=== PATIENT | male | born 1970 | race Asian ===

== ENCOUNTER → 2016-06-08 | Outpatient (CLI) | payer OTHER ==
[~2016-06-08] MED LIST: GADOBUTROL 10 ML VIAL IVP ONE
== END ==
LOC: FIMAGING 15:04
PROVIDERS: ATTEND Internal Medicine Hematology & Oncology
DX: Z08 Encounter for follow-up examination after completed treatment for malignant neoplasm (principal); C71.2 Malignant neoplasm of temporal lobe
CPT/HCPCS: A9585

== ENCOUNTER → 2016-09-03 | Outpatient (CLI) | payer OTHER | LOC: FIMAGING 10:01 | PROVIDERS: ATTEND Internal Medicine Hematology & Oncology | DX: C71.2 Malignant neoplasm of temporal lobe (principal) | CPT/HCPCS: A9585 ==

== ENCOUNTER → 2016-11-17 | Outpatient (CLI) | payer OTHER | LOC: FIMAGING 08:37 | PROVIDERS: ATTEND Internal Medicine Hematology & Oncology | DX: Z08 Encounter for follow-up examination after completed treatment for malignant neoplasm (principal); Z85.841 Personal history of malignant neoplasm of brain; G93.89 Other specified disorders of brain | CPT/HCPCS: A9585 ==

== ENCOUNTER → 2017-02-22 | Outpatient (CLI) | payer OTHER | LOC: FIMAGING 18:42 | PROVIDERS: ATTEND Internal Medicine Hematology & Oncology | DX: R93.0 Abnormal findings on diagnostic imaging of skull and head, not elsewhere classified (principal); C71.2 Malignant neoplasm of temporal lobe | CPT/HCPCS: A9585 ==

== ENCOUNTER 2017-05-02 13:12 | Emergency (ER) | payer OTHER ==
--- NOTE | 2017-05-02 13:25 | CPEKG ---
Heart Rate: 102 RR Interval: 588 P-R Interval: 128 QRSD Interval: 96 QT Interval: 360 QTC Interval: 469 P Tenaf[place]: 28 QRS [place]af[place]: 28 T Wave Tenaf[place]: -6 EKG Severity - BORDERLINE ECG - EKG Impression: SINUS TACHYCARDIA EKG Impression: BORDERLINE T ABNORMALITIES, INFERIOR LEADS Electronically Signed By: Luis Poe 02-May-2017 18:14:35
[2017-05-02 13:36] LABS: PLATELET COUNT 277 10^3/uL (150-400)
--- NOTE | 2017-05-02 13:36 | EDPHY ---
General Narrative: CHIEF COMPLAINT: Seizure HISTORY OF PRESENT ILLNESS: Patient arrived EMS with reports of seizure. EMS reports that witness at an internet cafe describe tonic clonic type activity. Lasted for 1-2 minute. EMS arrived and he was reportedly postal. He was reportedly admitted 5 mg of Versed EN route. His postictal at in no acute distress. He does not remember what happened. He says that he sore and somewhat confused. he has no headache. No neck pain. No chest pain. No injury to the tongue. No urination or defecation. History of glioblastoma with resection February 2016. Radiating therapy last summer and fall. Most recent brain MRI in February showed possible recurrence versus radiation necrosis the schedule for repeat MRI next month. His oncologist Dr. Elvira Cage. His neurosurgeon is Dr. Ingram. REVIEW OF SYSTEMS: Ten systems reviewed and are negative unless otherwise noted in the HPI PCP: Dr. Levon Felix SPECIALISTS: Dr. Levon Ingram PAST MEDICAL HISTORY: Glioblastoma PAST SURGICAL HISTORY: Craniotomy with resection of glioblastoma February 2016 SOCIAL HISTORY: Nonsmoker. No alcohol. Lives in [place] with his spouse FAMILY HISTORY: Noncontributory EXAMINATION General Appearance: Alert, no distress Head: Optune neurostimulator in place. normocephalic, atraumatic. No Chaudhry sign. No raccoon eyes. Eyes: Pupils equal and round, no conjunctival pallor or injection. EOMs intact. No nystagmus or dysconjugate gaze ENT, Mouth: Mucous membranes moist. Airway is patent. Gag reflex present Neck: Normal inspection, supple, non-tender Respiratory: Lungs are clear to auscultation Cardiovascular: Regular rate and rhythm. No murmur Gastrointestinal: Abdomen is soft and nontender Back: non-tender, no bony abnormalities Neurological: GCS 15. postictal but alert. Stress symmetric in all 4 limbs. No pronator drift. Normal finger to nose. Skin: Warm and dry, no rash petechiae or purpura Extremities: Nontender, no pedal edema Psychiatric: Mood and affect normal DIFFERENTIAL DIAGNOSES: Including but not limited to seizure, cerebral edema, glioblastoma recurrence MDM: 1:40 p.m. Likely seizure that was witnessed by bystanders not at this hospital. Patient does have a history of a glioblastoma on the right side that status post resection with possible recurrence versus radiation necrosis on most recent MRI. He is postictal but in no acute distress at this time. No seizure-like activity witnessed thus far. I did speak with his and have discover that his neurosurgeon is Dr. Ingram I will patent to discuss. I discussed with Dr. Poe. We will repeat the MRI with contrast. 1:53 p.m. Case discussed with the neurosurgery PA Carissa. Discussed patient's case. She confirmed that his craniotomy and resection was February 2016. He was last seen in the office in April of 2016, 1 year ago. She recommends IV Keppra at this time. Does not recommend steroid the MRI returns. She also recommends that I contact his oncologist Dr. Felix. 2:00 p.m. Case discussed with Dr. Dunham, on-call for Dr. Felix. We discussed the patient's history and current status. He agrees that Decadron is reasonable treatment at this time. He recommends that we contact the hospitalist oncologist should the patient warrant inpatient stay. 2:30 p.m. Patient has been evaluated here in the emergency department by Dr. Gurrola 3:00 p.m. Patient is now in MRI department. 4:[address] Gurrola he has reviewed the MRI. He does not appreciate any acute findings. He recommends Keppra 500 mg twice daily. He recommends follow up with established neurosurgeon and primary care as well as on-call. This is pending official radiology to petition. 4:40 p.m. MRI results were reported to Dr. Poe. No significant findings. I have updated the patient of this. At this point he is stable for discharge home with outpatient follow-up as above. Patient's spouse are comfortable this plan. We discussed driving precautions, at risk behavior and ED precautions. They are comfortable this plan and discharged home stable condition SUPERVISION: Patient was independently examined, but I discussed the case with my secondary supervising physician Dr. Poe ([facility]) Medical Decision Making: PHYSICIAN DOCUMENTATION: The patient was evaluated and managed by the Physician Storage Brine Worker. My co- signature indicates that I have reviewed this chart and I agree with the findings and plan of care as documented. I am the secondary supervising physician. (Luis Poe) - Diagnostics Imaging Results: Imaging Impressions Brain MRI 05/02/17 13:47 Impression: 1. Right temporal lobe postsurgical changes with diminishing minimal enhancement in the ventral lateral temporal lobe region adjacent to the temporal horn suggesting improvement of minimal radiation necrosis or enhancing gliosis. Minimal residual neoplasm cannot be entirely excluded, although interval improvement suggests more likely benign etiology. 2. No new enhancing lesions. 3. Atrophy. 4. No acute infarct, acute hemorrhage, epidural/subdural hematoma, hydrocephalus , or herniation. Findings and recommendations discussed with Emergency Department physician, Luis Poe at 1620 hour, 05/02/2017. Final report concurs with initial preliminary interpretation. - Objective Vital Signs: Initial Vital Signs Temperature (C) 36.8 C 05/02/17 13:13 Heart Rate 102 H 05/02/17 13:13 Respiratory Rate 18 05/02/17 13:13 Blood Pressure 124/81 H 05/02/17 13:13 O2 Sat (%) 94 05/02/17 13:13 O2 Delivery Mode Room Air Allergies/Adverse Reactions: No Known Allergies Allergy (Unverified 05/02/17 14:13) Home Medications: Medication Instructions Recorded levETIRAcetam [Keppra 500 mg (*)] 500 mg PO BID #60 tab 05/02/17 Laboratory Results: Laboratory Results 05/02/17 13:10 05/02/17 13:10 05/02/17 05/02/17 13:10 13:10 WBC 11.85 10^3/uL H 10^3/uL (3.80-9.50) RBC 5.21 10^6/uL 10^6/uL (4.40-6.38) Hgb 15.6 g/dL g/dL (13.7-17.5) Hct 48.7 % % (40.0-51.0) MCV 93.5 fL fL (81.5-99.8) MCH 29.9 pg pg (27.9-34.1) MCHC 32.0 g/dL L g/dL (32.4-36.7) RDW 11.9 % % (11.5-15.2) Plt Count 277 10^3/uL 10^3/uL (150-400) MPV 10.9 fL fL (8.7-11.7) Neut % (Auto) 60.6 % % (39.3-74.2) Lymph % (Auto) 27.7 % % (15.0-45.0) [place] % (Auto) 6.6 % % (4.5-13.0) Eos % (Auto) 2.8 % % (0.6-7.6) Baso % (Auto) 0.9 % % (0.3-1.7) Nucleat RBC Rel Count 0.0 % % (0.0-0.2) Absolute Neuts (auto) 7.19 10^3/uL H 10^3/uL (1.70-6.50) Absolute Lymphs (auto) 3.28 10^3/uL H 10^3/uL (1.00-3.00) Absolute Monos (auto) 0.78 10^3/uL 10^3/uL (0.30-0.80) Absolute Eos (auto) 0.33 10^3/uL 10^3/uL (0.03-0.40) Absolute Basos (auto) 0.11 10^3/uL H 10^3/uL (0.02-0.10) Absolute Nucleated RBC 0.00 10^3/uL 10^3/uL (0-0.01) Immature Gran % 1.4 % H % (0.0-1.1) Immature Gran # 0.16 10^3/uL H 10^3/uL (0.00-0.10) Sodium 146 mEq/L H mEq/L (135-145) Potassium 4.0 mEq/L mEq/L (3.5-5.2) Chloride 104 mEq/L mEq/L (97-110) Carbon Dioxide 9 mEq/l L* mEq/l (22-31) Anion Gap 33 mEq/L H mEq/L (8-16) BUN 14 mg/dL mg/dL (7-23) Creatinine 0.9 mg/dL mg/dL (0.7-1.3) Estimated GFR > 60 Glucose 134 mg/dL H mg/dL (70-100) Calcium 9.6 mg/dL mg/dL (8.5-10.4) Creatine Kinase 132 IU/L IU/L (0-224) Medications Given: Discontinued Medications Dexamethasone (Decadron Injection) 10 mg IVP EDNOW ONE Stop: 05/02/17 14:12 Last Admin: 05/02/17 14:15 Dose: 10 mg Levetiracetam 1,000 mg/ Sodium (Chloride) 110 mls @ 440 mls/hr IV EDNOW ONE Stop: 05/02/17 14:07 Last Admin: 05/02/17 14:12 Dose: 110 mls Departure - Departure Disposition: Home, Routine, Self-Care Clinical Impression: Witnessed seizure-like activity, Primary glioblastoma of brain Instructions: Nonepileptic Seizures (ED) Additional Instructions: 1. Medication as prescribed 2. Contact Dr. Felix for outpatient follow-up 3. Contact Dr. Ingram for outpatient follow-up 4. Driving restrictions as discussed 5. Avoid activities that place you or those around you in danger as discussed 6. ED precautions as discussed Referrals: Fadi Ingram MD [Medical Doctor] - As per Instructions Kimberly Felix MD [Medical Doctor] - As per Instructions Prescriptions: levETIRAcetam [Keppra 500 mg (*)] 500 mg PO BID #60 tab
[2017-05-02 13:43] LABS: CREATINE KINASE 132 IU/L (0-224)
[2017-05-02] MEDS ORDERED: levETIRAcetam 1,000 MG in NS 100 ML IV ONE (13:53)
[2017-05-02] MEDS ORDERED: DEXAMETHASONE 10 MG/ML VIAL IVP ONE (14:11)
[2017-05-02] MEDS ORDERED: GADOBUTROL 10 ML VIAL IVP ONE (14:20)
--- NOTE | 2017-05-02 15:15 | GCON ---
[f rep st] CONSULTATION NEUROSURGICAL EMERGENCY ROOM CONSULTATION DATE OF CONSULTATION: 05/02/2017 CHIEF COMPLAINT: The patient is a 46-year-old man with new onset seizures. HISTORY OF PRESENT ILLNESS: The patient has a known glioblastoma and underwent surgery for this in 2015 under the care of Dr. Ingram. He subsequently underwent radiation, chemotherapy and is currently on Optune and is very functional and was working in his office today when he had what so unds like a tonoclonic seizure. He was taken to [facility] emergency room by brady orozco and is here now for neurosurgical evaluation. PAST MEDICAL AND SURGICAL HISTORY: 1. Craniotomy for GBM as noted above. 2. Remote history of nasal surgery. MEDICATIONS ON ADMISSION: Optune chemotherapy for GBM. ALLERGIES: None known. FAMILY HISTORY: Noncontributory. SOCIAL HISTORY: The patient is and lives in [place] and is a 4-year-old child. PHYSICAL EXAMINATION: CARDIOVASCULAR: Regular rate and rhythm. LUNGS: Clear on auscultation. ALANA ROLOGIC: The patient is awake, alert, and oriented x4. The patient's speech is fluent and appropria te. His extraocular movements are intact. He has full strength throughout. His reflexes are within normal limits. DIAGNOSTIC STUDIES: MRI of the brain dated February of 2017 was reviewed by me personally and shows postsurgical changes in the right temporoparietal area with some enhancement, is not clearly tumor re currence and could be radiation necrosis. IMPRESSION AND RECOMMENDATIONS: This is a 46-year-old man who is about 14 months out from a cranioto my for glioblastoma multiforme resection followed by chemotherapy. He is very functional and had a n ew onset seizure. He was given Keppra in the emergency room and will be given 10 of Decadron. He is pending a repeat MRI of his brain and, if this is unremarkable for any changes, we will probably sen d him home on anticonvulsants and rapid steroid taper or no steroids at all. If the MRI shows someth ing significant, then we may need to admit him or do some other intervention. /[id number]/MODL
[2017-05-02 16:43] VITALS: BP 127/97; PULSE 79; RESP 18; TEMP 98.6; O2SAT 97
== END 2017-05-02 17:00 | disposition home or self-care (01) ==
LOC: EDUNIT#
DX: R56.9 Unspecified convulsions (principal); C71.9 Malignant neoplasm of brain, unspecified
CPT/HCPCS: 96365; A9585; J1100; J1953

== ENCOUNTER → 2017-08-02 | Outpatient (CLI) | payer OTHER | LOC: FIMAGING 13:12 | DX: C71.2 Malignant neoplasm of temporal lobe (principal) | CPT/HCPCS: A9585 ==

== ENCOUNTER → 2017-10-08 | Outpatient (CLI) | payer OTHER | LOC: FIMAGING 12:26 | PROVIDERS: ATTEND Internal Medicine Hematology & Oncology | DX: C71.2 Malignant neoplasm of temporal lobe (principal); D49.6 Neoplasm of unspecified behavior of brain | CPT/HCPCS: A9585 ==

== ENCOUNTER → 2018-01-22 | Outpatient (CLI) | payer OTHER | LOC: FIMAGING 06:50 | DX: C71.2 Malignant neoplasm of temporal lobe (principal) | CPT/HCPCS: A9585 ==

== ENCOUNTER → 2018-04-23 | Outpatient (CLI) | payer OTHER | LOC: FIMAGING 07:43 | PROVIDERS: ATTEND Internal Medicine Hematology & Oncology | DX: C71.2 Malignant neoplasm of temporal lobe (principal) | CPT/HCPCS: A9585 ==

== ENCOUNTER 2018-04-30 05:55 | Inpatient (IN) | payer OTHER ==
[2018-04-30] MEDS ORDERED: LR 1,000 ML IV ONE (06:08)
[2018-04-30] MEDS ORDERED: LIDOCAINE 1% 2 ML INJ ID PRN (06:08)
[2018-04-30] MEDS ORDERED: ACETAMINOPHEN 500 MG TAB PO ONE (06:24)
[2018-04-30] MEDS ORDERED: ceFAZolin 2 GM/DEXTROSE 100 ML IV ONE (06:24)
[2018-04-30 06:59] LABS: PLATELET COUNT 225 10^3/uL (150-400)
[2018-04-30] MEDS ORDERED: GADOBUTROL 10 ML VIAL IVP ONE (06:59)
[2018-04-30] MEDS ORDERED: CHLORHEXIDINE GLUC HIBICLENS 118 ML BTL TP ONE (07:46)
[2018-04-30] MEDS ORDERED: MANNITOL 20% 100 GM/500 ML BAG IV ONE (07:46)
[2018-04-30] MEDS ORDERED: SURGIFLO MATRIX KIT WITH THROMBIN 8 ML TP ONE (07:46)
[2018-04-30] MEDS ORDERED: BACITRACIN ZINC 0.5 OZ OINTTUBE TP ONE (07:46)
[2018-04-30] MEDS ORDERED: THROMBIN (BOVINE) 5,000 UNIT VIAL TP ONE (07:46)
[2018-04-30] MEDS ORDERED: AVITENE POWDER 1 GM JAR TP ONE (07:47)
[2018-04-30] MEDS ORDERED: BUPIVACAINE/EPI 0.25% 30 ML SDV ONE (07:47)
[2018-04-30] MEDS ORDERED: GENTAMICIN SULFATE 80 MG/2 ML VIAL ONE (07:47)
[2018-04-30] MEDS ORDERED: HYDROGEN PEROXIDE 236 ML BOTTLE TP ONE (07:47)
--- NOTE | 2018-04-30 07:53 | PDHPUP ---
History & Physical Update H&P update statement: This history and physical update is based on an assessment of the patient which was completed after admission or registration (within 24 hours), but prior to the surgery/procedure. H&P update: H&P reviewed & patient examined, no change in patient's condition since H&P completed
--- NOTE | 2018-04-30 08:34 | PDANEPAE ---
ANE History of Present Illness 47 year old with glio ANE Past Medical History - Cardiovascular History Hx Hypertension: No Hx Arrhythmias: No Hx Chest Pain: No Hx Coronary Artery / Peripheral Vascular Disease: No Hx CHF / Valvular Disease: No Hx Palpitations: No - Pulmonary History Hx COPD: No Hx Asthma/Reactive Airway Disease: No Hx Recent Upper Respiratory Infection: No Hx Oxygen in Use at Home: No Hx Sleep Apnea: No Sleep Apnea Screening Result - Last Documented: Negative Pulmonary History Comment: reports no illness but occasional productive cough - Neurologic History Hx Cerebrovascular Accident: No Hx Seizures: Yes Hx Dementia: No Neurologic History Comment: glioblastoma. last seizure 04/2017 - Endocrine History Hx Diabetes: No - Renal History Hx Renal Disorders: No - Liver History Hx Hepatic Disorders: No - Neurological & Psychiatric Hx Hx Neurological and Psychiatric Disorders: No Neurological / Psychiatric History Comment: GLIOBLASTOMA - Cancer History Hx Cancer: Yes Cancer History Comment: glioblastoma - Congenital Disorder History Hx Congenital Disorders: No - GI History Hx Gastrointestinal Disorders: No - Other Health History Other Health History: last oral chemotherapy Mar 12, 2018 - Chronic Pain History Chronic Pain: No - Surgical History Prior Surgeries: left crainotomy w/resection 10/2017. left knee reconstruction in [place] 10/2017. crani for tumor resection 2016 ANE Review of Systems Review of systems is: negative Review of Systems: - Exercise capacity METS (RN): 4 METS ANE Patient History - Allergies Allergies/Adverse Reactions: No Known Allergies Allergy (Verified 04/29/18 12:57) - Home Medications Home Medications: Dexamethasone [Decadron 4 MG (*)] 4 mg PO BID 04/29/18 [Last Taken 04/30/18 05: 00] levETIRAcetam [Keppra 500 mg (*)] 500 mg PO BID 04/29/18 [Last Taken 04/30/18 05 :00] - NPO status NPO Since - Liquids (Date): 04/30/18 NPO Since - Liquids (Time): 04:00 NPO Since - Solids (Date): 04/29/18 NPO Since - Solids (Time): 21:00 - Anes Hx Anes Hx: no prior problems - Smoking Hx Smoking Status: Never smoked - Family Anes Hx Family Hx Anesthesia Complications: none ANE Labs/Vital Signs - Labs Result Diagrams: 04/30/18 06:40 04/30/18 06:40 - Vital Signs Blood Pressure: 131/87 Heart Rate: 59 Respiratory Rate: 16 O2 Sat (%): 95 Height: 170.18 cm Weight: 74.843 kg ANE Physical Exam - Airway Neck exam: FROM, spinal fusion Mouth exam: normal dental/mouth exam - Pulmonary Pulmonary: no respiratory distress - Cardiovascular Cardiovascular: regular rate and rhythym ANE Anesthesia Plan Anesthesia Plan: general endotracheal anesthesia Lines/Monitors: arterial line
[2018-04-30] MEDS ORDERED: MIDAZOLAM 2 MG/2 ML VIAL IVP ONE (08:36)
[2018-04-30] MEDS ORDERED: PROPOFOL 200 MG/20 ML VIAL ONE ×2 (08:48→11:50)
[2018-04-30] MEDS ORDERED: fentaNYL 100 MCG/2 ML INJ ONE ×2 (08:48→12:21)
[2018-04-30] MEDS: levETIRAcetam 500 MG TAB PO SCH ×2 (11:57→20:23)
[2018-04-30] MEDS ORDERED: NALOXONE HCL 0.4 MG/ML INJ IVP PRN ×2 (12:16→12:17)
[2018-04-30] MEDS ORDERED: ONDANSETRON 4 MG/2 ML VIAL IVP PRN ×2 (12:17→12:21)
[2018-04-30] MEDS ORDERED: PROMETHAZINE HCL 25 MG/ML INJ IVP PRN ×2 (12:17→12:21)
[2018-04-30] MEDS ORDERED: fentaNYL 100 MCG/2 ML INJ IVP PRN (12:17)
--- NOTE | 2018-04-30 12:20 | POSTANESTH ---
Post Anesthetic Evaluation Cardiovascular Status: Normal, Stable Respiratory Status: Normal, Stable Level of Consciousness/Mental Status: Can Participate in Eval Pain Control: Adequate, Prn Tx Ordered Nausea/Vomiting Control: Adequate, Prn Tx Ordered Complications Possibly Related to Anesthesia: None Noted
[2018-04-30] MEDS ORDERED: HYDROCODONE/APAP 10/325 TAB PO PRN (12:21)
[2018-04-30] MEDS ORDERED: POLYETHYLENE GLYCOL 3350 17 GM PKT PO PRN (12:21)
[2018-04-30] MEDS ORDERED: ACETAMINOPHEN 325 MG TAB PO PRN (12:21)
[2018-04-30] MEDS ORDERED: BISACODYL 10 MG SUPP PR PRN (12:21)
[2018-04-30] MEDS ORDERED: LACTULOSE 20 GM/30 ML UDCUP PO PRN (12:21)
[2018-04-30] MEDS ORDERED: diphenhydrAMINE 25 MG CAP PO PRN (12:21)
[2018-04-30] MEDS ORDERED: ONDANSETRON DISINTEGRATING 4 MG TAB PO PRN (12:21)
[2018-04-30] MEDS ORDERED: niCARdipine/NACL 200 ML IV PRN (12:21)
[2018-04-30] MEDS ORDERED: MAGNESIUM HYDROXIDE 30 ML UDCUP PO PRN (12:21)
[2018-04-30] MEDS ORDERED: NS W/ 20 KCl/L 1,000 ML IV SCH (12:30)
--- NOTE | 2018-04-30 12:37 | POSTOPPROG ---
Post Op Note Date of Operation: 04/30/18 Surgeon: José Wade [employer] Specialist: Kemi Lal PA-C Anesthesia: GET(General Endotracheal) Pre-op Diagnosis: Glioblastoma Post-op Diagnosis: same Procedure: Re-do left parietal craniotomy for resection of recurrent GBM Inf/Abcess present in the surg proc area at time of surgery?: No Depth: Organ Space EBL: 75 Complications: None observed SOAP Progress Note Assessment/Plan: Assessment: Plan: 04/30/18 12:34 S: Patient is doing well, awake in PACU and stable. O: Alert, Awake, following commands Vision grossly intact PERRL, EOMI CN II-XII grossly intact SANCHEZ X4 to commands No droop BLE 5/5= BUE 5/5 SILT Incision c/d/i- dressed A: 47 yo male sp Re-do left parietal craniotomy for resection of recurrent GBM P: -Admit to SDU -Q2 hour neuro checks -Optimize pain management -PT.OT.JUSTICE COURT JUDGE -Postop MRI in am -SBP 90-140 -Advance diet as tolerated -Continue decadron 4mg q6hrs for now, will determine taper after MRI(was on 4mg BID prior to surgery) -DVT: TEDs, SCDs, Lovenox may be started tomorrow if MRI looks good -Seen by Dr. Wade in PACU -Call with any changes in neuro exam Objective: Vital Signs Temp Pulse Resp BP Pulse Ox 36.7 C 59 L 16 131/87 H 95 04/30/18 07:02 04/30/18 08:34 04/30/18 08:34 04/30/18 08:34 04/30/18 08:34 Laboratory Results 04/30/18 06:40 04/30/18 06:40
--- NOTE | 2018-04-30 13:15 | PDMN ---
Medical Necessity Medical necessity: Pt meets inpt criteria per MD order and [facility], Craniotomy , Supratentorial, 3 days, [facility] IP only list. 47 y/o w/glioblastoma underwent re- do L parietal craniotomy for resection of recurrent GBM.
--- NOTE | 2018-04-30 14:13 | ASMTCMCOM ---
CM Note CM Note Notes: Reviewed chart, pt in for a scheduled brain surgery on a parietal tumor.P lives at home with his , PT/OT/INDEPENDENT FREIGHT AGENT therapies pending, VALENTINE w/f. DC Plan: TBD Date Signed: 04/30/2018 02:12 PM Electronically Signed By:Viky Diaz RN
--- NOTE | 2018-04-30 15:29 | GOP ---
DATE OF OPERATION: 04/30/2018 SURGEON: José Wade MD NEUROSURGEON: José Wade MD. LABORATORY CLERK: RAMON Graham. ANESTHESIA: General endotracheal. PREOPERATIVE DIAGNOSIS: Recurrent glioblastoma. POSTOPERATIVE DIAGNOSIS: Recurrent glioblastoma. PROCEDURE PERFORMED: 1. Redo left parietal craniotomy. 2. Microsurgical gross total resection of primary brain tumor. 3. Use of the operating microscope. 4. Stealth stereotactic neuronavigation for volumetric gross total resection of tumor. 5. Titanium mesh cranioplasty. FINDINGS: SPECIMENS: Left recurrent parietal brain tumor. Frozen section showed glioblastoma. ESTIMATED BLOOD LOSS: 75 cc fluids. INDICATIONS: The patient is a 47-year-old man who has had a right temporal glioblastoma and subsequently a left parietal glioblastoma which were resected by Dr. Ingram. His last surgery was in January of last year, and he has had a recurrence already. We discussed the options and elected to bring him to surgery for resection followed by radiation therapy. DESCRIPTION OF PROCEDURE: After informed consent was obtained from the patient , the patient was brought to the operating room and was placed in a supine position on the operating table. A formal time-out was performed, identifying the patient by name, medical record number and date of . Preoperative antibiotics were given. The endotracheal tube was placed, and general endotracheal anesthesia was smoothly induced. The patient's head was placed in Schilling pins and turned slightly toward the left side, and his back was extended upward to a near sitting position. The Stealth was then registered to the scalp and checked for accuracy using known surface landmarks. The previous incision was marked. The head was prepped and draped in the normal sterile fashion. The skin incision was made using a 10 blade, and the subcutaneous tissues were dissected using monopolar electrocautery. Chelsy clips were placed for hemostasis. Self-retaining retractors were placed, and the previous bone flap was identified. The previous titanium plates and screws were removed, and the bone flap was removed. Medially, the previous bone flap did not extend quite to the sagittal sinus. Therefore, I stripped the dura from beneath and some more bone medially was drilled coming all the way to the edge of the sagittal sinus to get more exposure. At this point, the dura was opened in a curvilinear fashion from the space for the sagittal sinus. The operating microscope was then brought on the field and remainder of the procedure was performed under high-power magnification. Using the stealth, we then anteriorly found the borders of the tumor. Bipolar electrocautery and suction were then used to make a small corticectomy and the anterior border of the tumor was followed very closely carefully this from what likely would have been motor cortex anteriorly by 1 gyrus. We continued in this fashion, also laterally the tumor from the brain. Posteriorly, we were also able to separate the tumor from the brain. A small piece superficially was taken for frozen section which returned as again glioblastoma. The scar tissue was carefully from the falx, and we continued this circumferential dissection until the tumor was completely disconnected. The tumor was then removed en bloc. The edges of the cavity were then inspected. There was 1 questionable area anteriorly and medially, and a little bit more tumor was removed using the ultrasonic aspirator. All the borders at this point looked quite clean without any further suspicious tissue. The lateral ventricle was entered laterally during the resection. A small piece of Gelfoam was placed into the ventricular opening, and there was no leakage of CSF. At this point, again, the cavity was carefully inspected. All bleeders were controlled using bipolar electrocautery. The wound was completely dry. This was then irrigated with gentamicin irrigation, and Surgicel was placed over all the borders of the resection cavity. At this point , the cavity was also checked with the navigation to be sure that we had covered all the areas that we expected. At this point, the dura was tacked closed using interrupted 4-0 Nurolons, but given the shrinkage of the dura did not close completely. Therefore, a duraplasty using DuraGen was performed. The craniotomy flap was plated back in place using Synthes titanium plates and screws. Medially where we had drilled the bone there was a gap, and this was covered using titanium mesh. The wound was then copiously irrigated using bacitracin irrigation. All bleeding from the skin was closed controlled using bipolar electrocautery. The galea was closed using interrupted 2-0 Vicryls, and the skin was closed using a running locking 3-0 Prolene. The patient was then awakened in the operating room and was removed from the Schilling pins. He was transferred to the PACU in stable condition with no operative complications. I was scrubbed and present for the entire procedure. All sponge and needle counts were correct at the end of the case. FLUIDS AND URINE OUTPUT: Per the anesthesia record. DRAINS: There were no drains. /[id number]/MODL MTDD
[2018-04-30] MEDS: POLYETHYLENE GLYCOL 3350 17 GM PKT PO SCH ×2 (16:28→20:23)
[2018-04-30] MEDS: DEXAMETHASONE 4 MG TAB PO SCH (17:06)
[2018-04-30] MEDS: hydrALAZINE 20 MG/ML VIAL IVP PRN (17:06)
[2018-04-30] MEDS: FAMOTIDINE 20 MG TAB PO SCH (20:23)
[2018-04-30] MEDS: SENNOSIDES/DOCUSATE SODIUM TAB PO SCH (20:23)
[2018-05-01] MEDS: DEXAMETHASONE 4 MG TAB PO SCH ×5 (00:22→23:45)
[2018-05-01] MEDS: hydrALAZINE 20 MG/ML VIAL IVP PRN (01:45)
[2018-05-01] MEDS: levETIRAcetam 500 MG TAB PO SCH ×2 (07:46→20:46)
[2018-05-01] MEDS: FAMOTIDINE 20 MG TAB PO SCH ×2 (07:46→20:46)
[2018-05-01] MEDS: POLYETHYLENE GLYCOL 3350 17 GM PKT PO SCH ×3 (07:46→20:46)
[2018-05-01] MEDS: SENNOSIDES/DOCUSATE SODIUM TAB PO SCH ×2 (07:46→20:46)
--- NOTE | 2018-05-01 07:51 | NEUSURGPN ---
Assessment/Plan: Assessment: Plan: 04/30/18 12:34 S: Doing well. No noticeable new symptoms since surgery. Mild incisional tenderness. O: Alert, Awake, following commands Vision grossly intact PERRL, EOMI CN II-XII grossly intact SANCHEZ X4 to commands No droop BLE 5/5= BUE 5/5 SILT Incision c/d/i- dressed A: 47 yo male POD#1 sp Re-do left parietal craniotomy for resection of recurrent GBM P: -Neuro: Stable and doing well overall -Q4 neuro checks -Optimize pain management -PT.OT.RN FIRST ASSIST -Postop MRI this morning -SBP 90-140 -Continue decadron 4mg q6hrs for now -DVT: TEDs, SCDs,Sub Q heparin to start today - Seen by Dr. Wade as well -Call with any changes in neuro exam Catheter Insertion Date: 04/30/18 - Physician Discussed Patient with Dr.: Wade Neurosurgery Physical Exam - Vitals, I&O, Labs I and O 04/30/18 05/01/18 05/02/18 05:59 05:59 05:59 Intake Total 4758 Output Total 7575 Balance -2817 Weight 74.843 kg 74.843 kg Intake: Oral (ml) 325 IV Intake (ml) 3992 IV Infused (ml) 441 NS W/ 20 KCl/L 1,000 ml @ 441 100 mls/hr IV CONT AMIRA Rx#:[id number] Output: Urine (ml) 7500 Catheter 7500 Estimated Blood Loss (ml) 75 Vital Signs Temp Pulse Resp BP Pulse Ox 37.1 C 82 14 126/74 H 94 05/01/18 05:57 05/01/18 07:00 05/01/18 07:00 05/01/18 07:00 05/01/18 07:00 Laboratory Results 04/30/18 06:40 04/30/18 06:40 ICD10 Worksheet Patient Problems: Problems Problem Status Onset Brain tumor Acute
[2018-05-01] MEDS ORDERED: GADOBUTROL 10 ML VIAL IVP ONE (10:42)
[2018-05-01] MEDS: HEPARIN 5,000 UNIT/0.5 ML INJ SC SCH (20:46)
[2018-05-02] MEDS: DEXAMETHASONE 4 MG TAB PO SCH ×2 (05:42→12:09)
--- NOTE | 2018-05-02 07:27 | NEUSURGPN ---
Date of Surgery: 04/30/18 Post Op Day: 2 Assessment/Plan: A: 47 yo male POD#2 sp Re-do left parietal craniotomy for resection of recurrent GBM P: -Neuro: Stable and doing well overall -Q4 neuro checks -pain controlled without narcotics -PT.OT.[employer]ER -Postop MRI with gross total resection -2 week decadron taper -Discharge to home today -Call with any changes in neuro exam Subjective: Doing well this morning. No headache, nausea, vomiting. Objective: Awake. Alert. PERRL. EOMI Facial expression symmetrical Muscle strength full at 5/5 Sensation intact Incision with dressing c/d/i Catheter Insertion Date: 04/30/18 - Physician Discussed Patient with DrTom: [facility] Physical Exam - Vitals, I&O, Labs I and O 05/01/18 05/02/18 05/03/18 05:59 05:59 05:59 Intake Total 4758 1350 Output Total 7575 Balance -2817 1350 Weight 74.843 kg Intake: Oral (ml) 325 1350 IV Intake (ml) 3992 IV Infused (ml) 441 NS W/ 20 KCl/L 1,000 ml @ 441 100 mls/hr IV CONT AMIRA Rx#:[id number] Output: Urine (ml) 7500 Catheter 7500 Estimated Blood Loss (ml) 75 Other: Intake Quantity Yes Sufficient Number of Voids Catheter 2 Vital Signs Temp Pulse Resp BP Pulse Ox 37.3 C 78 14 126/88 H 94 05/01/18 23:38 05/01/18 23:38 05/01/18 23:38 05/01/18 23:38 05/01/18 23:38 Laboratory Results 04/30/18 06:40 04/30/18 06:40 ICD10 Worksheet Patient Problems: Problems Problem Status Onset Brain tumor Acute
[2018-05-02 07:50] VITALS: BP 124/87
[2018-05-02] MEDS: HEPARIN 5,000 UNIT/0.5 ML INJ SC SCH (08:00)
[2018-05-02] MEDS: SENNOSIDES/DOCUSATE SODIUM TAB PO SCH (08:01)
[2018-05-02] MEDS: FAMOTIDINE 20 MG TAB PO SCH (08:01)
[2018-05-02] MEDS: POLYETHYLENE GLYCOL 3350 17 GM PKT PO SCH (08:01)
[2018-05-02] MEDS: levETIRAcetam 500 MG TAB PO SCH (08:01)
--- NOTE | 2018-05-02 13:32 | ASMTLACE ---
LACE Length of stay for Answers: 3 days current admission Acuity / Level of Answers: Yes Care: Did the patient have an inpatient admission? Comorbidities - select Answers: Any tumor (including all that apply lymphoma or leukemia) # of Emergency department Answers: 1-2 visits in the last 6 months Score: 9 Date Signed: 05/02/2018 01:32 PM Electronically Signed By:LORENZO Bardales
--- NOTE | 2018-05-02 13:34 | ASMTCMCOM ---
CM Note CM Note Notes: Pt medically stable for d/c, no CM d/c needs identified. PT rec home, OT rec home/outpatient/[employer] rec outpatient. Date Signed: 05/02/2018 01:34 PM Electronically Signed By:LORENZO Bardales
== END 2018-05-02 12:33 | disposition home or self-care (01) | DRG 27 ==
LOC: F3N 05:55 → F2N 07:20 → F3N 05-01 16:24
PROVIDERS: ADMIT Neurological Surgery; ATTEND Neurological Surgery
PROC: 00B00ZZ Excision of Brain, Open Approach (ICD-10-PCS; principal; 2018-04-30 08:45)
DX: C71.3 Malignant neoplasm of parietal lobe (principal)
CPT/HCPCS: 88323-90; 88342; 92523-GN; 97161-GP; 97165-GO; A9585; C1713; J0360; J0690; J1580; J1644; J2250; J2704; J3010

== ENCOUNTER → 2018-07-18 | Outpatient (CLI) | payer OTHER | LOC: FIMAGING 07:21 | DX: Z08 Encounter for follow-up examination after completed treatment for malignant neoplasm (principal); C71.9 Malignant neoplasm of brain, unspecified | CPT/HCPCS: A9585 ==

== ENCOUNTER → 2018-09-17 | Outpatient (CLI) | payer OTHER | LOC: FIMAGING 06:40 ==

== ENCOUNTER → 2018-10-20 | Outpatient (CLI) | payer OTHER | LOC: FIMAGING 15:34 ==